=== PATIENT | female | born 1990 | race Caucasian/White ===

== ENCOUNTER 2024-06-17 15:10 | Emergency (ER) | payer MEDICAID ==
[~2024-06-17] VITALS: Ht 154.9 cm; Wt 88.6 kg
[2024-06-17 15:17] VITALS: BP 135/95; PULSE 88; RESP 18; TEMP 97.8; O2SAT 97
[2024-06-17] MEDS ORDERED: ESCI5TAB PO (15:39)
== END 2024-06-17 15:40 | disposition home or self-care (01) ==
LOC: ER 15:11
DX: Z76.0 Encounter for issue of repeat prescription (principal); F32.A Depression, unspecified; Z88.8 Allergy status to other drugs, medicaments and biological substances; Z91.040 Latex allergy status
CPT/HCPCS: 99281